=== PATIENT | female | born 1970 | race Caucasian/White ===

== ENCOUNTER 2017-10-05 07:15 | Emergency (ER) | payer BC ==
[~2017-10-05] VITALS: Ht 165.1 cm; Wt 70.3 kg
[2017-10-05] MEDS ORDERED: BENZONATATE 100 MG CAPSULE. PO ONE (07:30)
[2017-10-05] MEDS ORDERED: IPRATRPIUM/ALBUTEROL 0.5/2.5MG 3 ML NEBU. NEB ONE (07:30)
[2017-10-05] MEDS ORDERED: predniSONE 10 MG TABLET PO ONE (07:30)
--- NOTE | 2017-10-05 07:31 | PHYS DOC ---
Adult General Chief Complaint Chief Complaint: COUGH HPI HPI Patient is a 47 year old female with no significant medical history who presents to the ED with a dry cough for 1 week. Patient's also complaining of a hoarse voice. Patient states she's had subjective fever since this morning. Review of Systems Review of Systems Constitutional: Denies fever or chills [] Eyes: Denies change in visual acuity, redness, or eye pain [] HENT: Reports hoarse voice. Denies nasal congestion or sore throat [] Respiratory: reports cough, denies shortness of breath [] Cardiovascular: No additional information not addressed in HPI [] GI: Denies abdominal pain, nausea, vomiting, bloody stools or diarrhea [] : Denies dysuria or hematuria [] Musculoskeletal: Denies back pain or joint pain [] Integument: Denies rash or skin lesions [] Neurologic: Denies headache, focal weakness or sensory changes [] All other systems were reviewed and found to be within normal limits, except as documented in this note. Current Medications Current Medications Current Medications Medications (Trade) Dose Ordered Sig/Clemente Start Time Stop Time Status Last Admin Dose Admin Albuterol/ Ipratropium (Duoneb) 3 ml 1X ONCE 10/05/17 07:30 10/05/17 07:31 DC 10/05/17 08:00 3 ML Benzonatate (Tessalon Perle) 100 mg 1X ONCE 10/05/17 07:30 10/05/17 07:31 DC 10/05/17 07:56 100 MG Prednisone (Prednisone) 50 mg 1X ONCE 10/05/17 07:30 10/05/17 07:31 DC 10/05/17 07:56 50 MG Allergies Allergies Allergies Coded Allergies Type Severity Reaction Last Updated Verified No Known Drug Allergies 10/05/17 No Physical Exam Physical Exam Constitutional: Well developed, well nourished, no acute distress, non-toxic appearance. [] HENT: Normocephalic, atraumatic, bilateral external ears normal, oropharynx moist, no oral exudates, nose normal. [] Eyes: PERRLA, EOMI, conjunctiva normal, no discharge. [] Neck: Normal range of motion, no tenderness, supple, no stridor. [] Cardiovascular:Heart rate regular rhythm, no murmur [] Lungs & Thorax: No wheezing diminished breath sounds to the LLL. The rest of the lung bases are clear. Abdomen: Bowel sounds normal, soft, no tenderness, no masses, no pulsatile masses. [] Skin: Warm, dry, no erythema, no rash. [] Back: No tenderness, no CVA tenderness. [] Extremities: No tenderness, no cyanosis, no clubbing, ROM intact, no edema. [] Neurologic: Alert and oriented X 3, normal motor function, normal sensory function, no focal deficits noted. [] Psychologic: Affect normal, judgement normal, mood normal. [] Current Patient Data Vital Signs Vital Signs Date Time Temp Pulse Resp B/P (MAP) Pulse Ox O2 Delivery O2 Flow Rate FiO2 10/05/17 08:02 Room Air 10/05/17 07:20 97.6 94 18 100 97.6 EKG EKG [] Radiology/Procedures Radiology/Procedures [] Course & Med Decision Making Course & Med Decision Making Pertinent Labs and Imaging studies reviewed. (See chart for details) Patient is in the ED with a dry cough for 1 week. Patient has symptoms consistent with acute bronchitis. Be given a DuoNeb treatment prednisone and Tessalon Perles and the ED with good relief of her symptoms. She was discharged with albuterol inhaler, prednisone, Tessalon Perles and azithromycin. Follow-up with the PCP this week. Alex Disclaimer Alex Disclaimer This electronic medical record was generated, in whole or in part, using a voice recognition dictation system. Departure Departure Impression: Primary Impression: Acute bronchitis Disposition: 01 HOME, SELF-CARE Condition: STABLE Referrals: EDIN MICHELE DO (PCP) follow up with your primary care doctor this week Patient Instructions: Acute Bronchitis Additional Instructions: You were seen with symptoms consistent of acute bronchitis. Use the medication prescribed as ordered. Contact your primary care doctor this week and set up a follow-up appointment Scripts Prednisone (PREDNISONE) 50 Mg Tablet 1 TAB PO DAILY, #4 TAB Prov: STEVEN MARSHALL [employer] 10/05/17 Azithromycin (ZITHROMAX) 250 Mg Tablet 1 PKG PO UD, #1 PKG Prov: MUTUNGASTEVEN [employer] 10/05/17 Benzonatate (TESSALON PERLE) 100 Mg Capsule 1 CAP PO TID, #30 CAP Prov: MUTUNGA,STEVEN [employer] 10/05/17 Albuterol Sulfate (Proair Respiclick) 90 Mcg Aer.pow.ba 1 PUFF IH PRN Q6HRS Y for SHORTNESS OF BREATH, #1 INHALER Prov: STEVEN MARSHALL [employer] 10/05/17 Problem Qualifiers Primary Impression: Acute bronchitis Bronchitis organism: unspecified organism Qualified Codes: J20.9 - Acute bronchitis, unspecified STEVEN MARSHALL [employer] Oct 05, 2017 07:31
[2017-10-05 09:30] VITALS: BP 123/73
[2017-10-05] MEDS ORDERED: BENZ100C PO (09:32)
[2017-10-05] MEDS ORDERED: AZIT250T PO (09:32)
[2017-10-05] MEDS ORDERED: PROAIR RESPICL90 MCG IH (09:32)
[2017-10-05] MEDS ORDERED: PRED50TA PO (09:32)
--- NOTE | 2017-10-05 09:38 | RAD ---
2 view chest 10/05/2017 Clinical indication: Cough and shortness of breath. Comparison: None. Findings: There is a small subcentimeter nodular opacity in the right lung base. No pleural effusion, pneumothorax or focal consolidation. Impression: 1. Small subcentimeter nodular opacity at the right lung base level which may represent nipple shadow or noncalcified pulmonary nodule. Repeat 2 view radiograph with nipple markers or CT chest is recommended. 2. Otherwise no acute cardiopulmonary abnormality. These results were discussed with Dr. Brown of the emergency service by telephone at 9:30 AM 10/05/[address] Leo Lopez
== END 2017-10-05 09:42 | disposition home or self-care (01) ==
LOC: ER 07:15
DX: J20.9 Acute bronchitis, unspecified (principal)
CPT/HCPCS: 71020; 94640; 99284; J7512; J7620